=== PATIENT | female | born 1955 | race Caucasian/White ===

== ENCOUNTER → 2019-05-14 | Outpatient (CLI) | payer BC | END | disposition home or self-care (01) | LOC: LAB 12:35 → LAB SHORT 12:35 | DX: E03.9 Hypothyroidism, unspecified (principal) | CPT/HCPCS: 84443 ==

== ENCOUNTER 2023-05-17 13:37 | Inpatient (IN) | payer MEDICARE ==
[~2023-05-17] VITALS: Ht 172.7 cm; Wt 74.7 kg
[2023-05-17 14:18] LABS: BASOPHILS ABSOLUTE AUTO 0.03 K/mm3 (0.00-0.23); BASOPHILS PERCENT AUTO 1 % (0-2); EOSINOPHILS ABSOLUTE AUTO 0.05 K/mm3 (0.00-0.68); EOSINOPHILS PERCENT AUTO 1 % (0-6); Hematocrit 34.4 % (33.0-51.0); IMMATURE GRAN ABSOLUTE AUTO 0.06 K/mm3 (0.00-0.10); IMMATURE GRAN PERCENT AUTO 1 % (0-1); LYMPHOCYTES ABSOLUTE AUTO 1.27 K/mm3 (0.84-5.20); LYMPHOCYTES PERCENT AUTO 20 % (21-46); MONOCYTES ABSOLUTE AUTO 0.88 K/mm3 (0.16-1.47); MONOCYTES PERCENT AUTO 14 % (4-13); Mean Corpuscular HGB 39.5 pg (26.0-34.0); Mean Corpuscular HGB Conc 34.9 g/dL (31.5-36.5); Mean Corpuscular Volume 113 fL (80-100); Mean Platelet Volume 12.4 fL (9.1-12.4); NEUTROPHILS ABSOLUTE AUTO 4.18 K/mm3 (1.96-9.15); NEUTROPHILS PERCENT AUTO 65 % (41-73); NRBC ABSOLUTE 0.02 K/mm3 (0.00-0.02); NRBC Auto 0.3 /100 WBC (0.0-0.2); Platelet Count 51 K/mm3 (150-400); RDW Coefficient Variation 13.2 % (11.7-14.2); RDW Standard Deviation 55.4 fL (35.1-46.3); Red Blood Cell Count 3.04 M/mm3 (3.80-5.20); White Blood Cell Count 6.47 K/mm3 (4.00-11.30)
[2023-05-17 14:27] LABS: Albumin, Blood 2.5 g/dL (3.4-5.0); Albumin/Globulin Ratio 0.5 (0.8-1.8); Bilirubin, Total 7.8 mg/dL (0.1-1.0); Bun/Creatinine Ratio 30.5 (12.0-20.0); Calcium, Blood 9.2 mg/dL (8.5-10.1); Creatinine, Blood 0.69 mg/dL (0.40-1.00); Globulin, Blood 4.7 g/dL (2.2-4.0); Potassium, Blood 3.7 mmol/L (3.5-5.5); Total Protein, Blood 7.2 g/dL (6.4-8.2)
[2023-05-17 15:18] LABS: Ethanol (Alcohol), Blood, Med <3 mg/dL
[2023-05-17 15:27] LABS: Magnesium, Blood 1.1 mg/dL (1.6-2.4)
[2023-05-17 16:08] LABS: Source, Urine Clean Catch
[2023-05-17 16:16] LABS: Appearance, Urine Hazy (Clear); Blood, Urine 2+ (Neg); Color, Urine Red (P-Yellow); Glucose Qualitative, Urine Neg (Neg); Ketones, Urine 1+ (Neg); Leukocyte Esterase, Urine 1+ (Neg); Nitrite, Urine Pos (Neg); Protein, Urine 2+ (Neg); Specific Gravity, Urine 1.015 (1.003-1.022); Urobilinogen, Urine 3+ (Normal)
[2023-05-17 16:31] LABS: U Amphetamine Screen Not Detected; U Barbituate Screen Not Detected; U Benzodiazapine Screen Not Detected; U Buprenorphine Screen Not Detected; U Cannabinoids Screen DETECTED; U Cocaine Screen Not Detected; U Methadone Screen Not Detected; U Methamphetamine Screen Not Detected; U Opiates Screen Not Detected; U Oxycodone Screen Not Detected; U Phencyclidine Screen Not Detected; U Propoxyphene Screen Not Detected
[2023-05-17 16:33] LABS: Bilirubin, Urine 2+ (Neg)
[2023-05-17 16:34] LABS: Bacteria Many /hpf; Granular Casts 0-2 /lpf (0); Squamous Epithelial Cells Mod /hpf (Few)
[2023-05-17] MEDS ORDERED: MAGNESIUM OXID500 MG PO (16:45)
[2023-05-17] MEDS ORDERED: EUTHYROX125 MC1 PO (16:45)
[2023-05-17 19:40] LABS: International Normalized Ratio 1.83; Prothrombin Time Results 18.6 Sec (9.7-11.5)
[2023-05-17 20:17] VITALS: BP 119/71
[2023-05-17 23:33] VITALS: BP 114/60
[2023-05-18 03:14] VITALS: BP 105/59
--- NOTE | 2023-05-18 05:17 | NUR ---
SHIFT SUMMARY: Pt confused yet cooperative. Able to answer simple questions but she is a poor historian, thus many admission questions left blank for now. went home for the night. She states that she is seeing bugs crawling around on the rodriguez. Treated with ativan x1 and librium x1 per CIWA protocol with minor improvement in symptoms, but pt still confused and hallucinating. Bed alarm on, pt in room next to nurses station for closer monitoring. She ate a half a sandwich and is drinking fluids.
[2023-05-18 07:13] LABS: Albumin/Globulin Ratio 0.5 (0.8-1.8); Bilirubin, Total 5.5 mg/dL (0.1-1.0); Bun/Creatinine Ratio 30.7 (12.0-20.0); Calcium, Blood 8.2 mg/dL (8.5-10.1); Creatinine, Blood 0.72 mg/dL (0.40-1.00); Globulin, Blood 3.9 g/dL (2.2-4.0); Magnesium, Blood 1.5 mg/dL (1.6-2.4); Potassium, Blood 3.4 mmol/L (3.5-5.5); Total Protein, Blood 5.9 g/dL (6.4-8.2)
[2023-05-18 07:53] VITALS: BP 111/60
[2023-05-18 07:58] LABS: International Normalized Ratio 2.07; Prothrombin Time Results 20.9 Sec (9.7-11.5)
[2023-05-18] MEDS ORDERED: HYDCHL25 PO (09:40)
[2023-05-18 11:30] VITALS: BP 104/51
[2023-05-18 15:47] VITALS: BP 122/74
--- NOTE | 2023-05-18 18:13 | NUR ---
shift summary PT ALERT, ORIENTED TO SOME QUESTIONS, DISORIENTED OF DATE, PLACE, PERSON. REORIENTS BRIEFLY. SP02>90% ON RA. TELEMETRY SHOWS NSR, HR MSTLY 80'S-90'S. C/O OF MILD HEADACHE/NECK PAIN. INCONTINENT OF URINE, BED CHANGE THIS SHIFT. BED BATH THIS SHIFT. FLUIDS INFUSING PER EMAR. CIWAS RANGING FROM 8-14, MEDICATED PER EMAR. NEW IV PLACED IN R FOREARM. , SON AND GRANDKIDS IN ROOM THIS AFTERNOON TO VISIT. MD JOVEL IN ROOM TO UPDATE FAMILY. MD JOVEL W/ ORDERS FOR [facility], SEE RESULTS. BED IN LOW POSITION. CALL LIGHT IN REACH. BED ALARM ON.
--- NOTE | 2023-05-18 20:21 | NUR ---
ASSUMPTION OF CARE: PATIENT IS SLEEPING WELL, HAS NOT SLEPT LAST NIGHT OR MOST OF THE DAY, IS STILL HALLUCINATING AND TALKING TO SELF, RECENTLY RECIEVED ATIVAN DUE TO INCREASE IN CIWA. PATIENT IS CURRENLTY CIWA CONTROLLED. ROCEPHIN RAN IN STILL INFUSING D5 1/2NS. BED ALARM ON ABD DISTENDED. LIVER PALPABLE ON ABD EXAM, NO SNORING, DID GET PLACED ON 2L VIA NC DUE TO AWKWARD POSITION, REPOSITIONING AND INSPECTING SKIN SOON PCT IS FREE. PATIENT IN NO SIGN OF ACUTE CARDIAC OR RESPIRATORY DISTRESS, WILL CONTINUE TO MONITOR UNTIL SHIFT CHANGE.
[2023-05-18 23:28] VITALS: BP 98/62
[2023-05-19] VITALS (8 sets, daily range): BP systolic 87–118; BP diastolic 44–69
[2023-05-19 05:11] LABS: Albumin, Blood 1.9 g/dL (3.4-5.0); Albumin/Globulin Ratio 0.5 (0.8-1.8); Bilirubin, Total 5.5 mg/dL (0.1-1.0); Bun/Creatinine Ratio 31.1 (12.0-20.0); Calcium, Blood 7.6 mg/dL (8.5-10.1); Creatinine, Blood 0.55 mg/dL (0.40-1.00); Globulin, Blood 3.8 g/dL (2.2-4.0); Magnesium, Blood 1.5 mg/dL (1.6-2.4); Potassium, Blood 3.6 mmol/L (3.5-5.5); Total Protein, Blood 5.7 g/dL (6.4-8.2)
--- NOTE | 2023-05-19 06:22 | NUR ---
EOS: NO CHANGES FROM ASSUMPTION OF CARE. SLEPT WELL THROUGH THE SHIFT. DID AMBULATE TO BSC WITH MAX 2 PERSON, STILL INFUSING D5NS. PATIENT STILL SELF TALK, SOME MINOR HALLUCINATIONS AND AGITATION, BUT FALLS RIGHT BACK TO SLEEP. PATIENT CIWA NEVER TREATED WITH PRN'S DUE TO SCORE NOT BEING HIGH ENOUGH, WILL CONTINUE TO MONITOR UNTIL SHIFT CHANGE. NO ACTIVE SIGNS OF CHEST PAIN PRESSURE OR SOB. LABS DRAWN THIS MORNING.
--- NOTE | 2023-05-19 07:50 | NUR ---
PT WAKENS TO STIMULUS, ANSWERS SHE IS IN [place], AT THE HOSPITAL, RETURNS TO SLEEP WHILE ADDITIONAL QUESTIONS ARE BEING ASKED. RESTLESS. IV INFUSING RFA. NC @ 2L, BP AND HR STABLE.
--- NOTE | 2023-05-19 10:23 | NUR ---
TO CT SCAN, PT TOLERATED WELL. SLEPT THROUGH MOST OF IT. SHE FORGOT WHERE SHE WAS AND PUT HER ARMS DOWN MID SCAN, REMINDED. ENGAGES IN CONVERSATION. RETURNS TO SLEEP.
--- NOTE | 2023-05-19 12:06 | NUR ---
TRIED TO WAKE PATIENT FOR LUNCH, PT CONTINUES SLEEPING SOUNDLY ON RIGHT SIDE. VITALS STABLE.
--- NOTE | 2023-05-19 15:29 | NUR ---
PT AWOKE AROUND 1430, WANTING TO USE BR. PT ASSISTED WITH 2 PERSON MAX ASSIST. URINE DARK SHARON/ORANGE AND FOUL SMELLING. PT STATES SHE KNOWS SHE IS IN [place]- [place] AT THE HOSPITAL. TELLING STORIES OF THEIR ESCAPE FROM THE [employer] IN [facility] A FEW YEARS AGO. SHE WAS ABLE TO BRUSH HER TEETH AND RINSE HER MOUTH, WAS ABLE TO TAKE IN SOME WATER. SHE WANTED TO EAT, SO HER LUNCH TRAY WAS BROUGHT IN, SHE IS WORKING ON IT. SHE DECLINED HELP SAYING THAT SHE NEEDS TO IMPROVE HER MUSCLES. C/O RIGHT FOREARM IV SITE BOTHERING HER, ADDITIONAL SITE PLACED IN LEFT FOREARM.
--- NOTE | 2023-05-19 18:00 | NUR ---
RICKEY WAS AWAKE THIS AFTERNOON AND COMPLETELY APPROPRIATE. SHE RECALLS WHAT SHE WAS TOLD ABOUT HER SCANS YESTERDAY AND WHY SHE IS IN THE HOSPITAL. SHE IS STILL VERY SHAKY AND UNSTEADY WHEN REACHING FOR THINGS. HER FINE MOTOR SKILLS ARE LACKING WITH TRYING TO GET HER PEACHES IN HER MOUTH, LANDING MANY ON HER CHEST. HER IV FLUIDS CONTINUE AT 75ML/HR. ANTIBIOTICS AND REPLACEMENTS GIVEN. VISITED TWICE TODAY. SON AND HIS CHILDREN HERE THIS MORNING. CT SCAN DONE THIS MORNING. PT HOPING TO BE ABLE TO GO HOME SOON.
--- NOTE | 2023-05-19 23:08 | NUR ---
ASSUMPTION OF CARE: PATIENT HAS WOKE UP ALERT AND ORIENTED 3-4, ANSWERING QUESTIONS APPROPRIATELY, MAKING NEEDS KNOWN, DENIES PAIN, NO ACUTE DISTRESS, WAS ABLE TO EAT A SNACK, FLUIDS STILL INFUSING. PATIENT IS STILL TIRED, AND IS NOW LAYING BACK DOWN. CALL LIGHT WITHIN REACH. VSS. WILL CONTINUE TO MONITOR UNTIL SHIFT CHANGE.
[2023-05-20 00:41] VITALS: BP 94/48
[2023-05-20 03:18] VITALS: BP 101/59
[2023-05-20 04:24] LABS: BASOPHILS ABSOLUTE AUTO 0.03 K/mm3 (0.00-0.23); BASOPHILS PERCENT AUTO 1 % (0-2); EOSINOPHILS ABSOLUTE AUTO 0.13 K/mm3 (0.00-0.68); EOSINOPHILS PERCENT AUTO 3 % (0-6); Hematocrit 29.5 % (33.0-51.0); IMMATURE GRAN ABSOLUTE AUTO 0.04 K/mm3 (0.00-0.10); IMMATURE GRAN PERCENT AUTO 1 % (0-1); LYMPHOCYTES ABSOLUTE AUTO 1.33 K/mm3 (0.84-5.20); LYMPHOCYTES PERCENT AUTO 26 % (21-46); MONOCYTES ABSOLUTE AUTO 0.79 K/mm3 (0.16-1.47); MONOCYTES PERCENT AUTO 15 % (4-13); Mean Corpuscular HGB Conc 33.9 g/dL (31.5-36.5); Mean Platelet Volume 11.8 fL (9.1-12.4); NEUTROPHILS ABSOLUTE AUTO 2.87 K/mm3 (1.96-9.15); NEUTROPHILS PERCENT AUTO 55 % (41-73); Platelet Count 52 K/mm3 (150-400); RDW Coefficient Variation 14.6 % (11.7-14.2); RDW Standard Deviation 60.8 fL (35.1-46.3); White Blood Cell Count 5.19 K/mm3 (4.00-11.30)
[2023-05-20 04:29] LABS: Mean Corpuscular Volume 118 fL (80-100)
[2023-05-20 04:43] LABS: Bun/Creatinine Ratio 22.7 (12.0-20.0); Calcium, Blood 7.2 mg/dL (8.5-10.1); Creatinine, Blood 0.62 mg/dL (0.40-1.00); Potassium, Blood 3.5 mmol/L (3.5-5.5)
--- NOTE | 2023-05-20 05:03 | NUR ---
EOS: NO CHANGE FROM ASSUMPTION OF CARE. DENIES CHEST PAIN PRESSURE OR SOB. STILL ON 2L VIA NC. SLEEPING WELL. STILL INFUSING FLUIDS, NO ACUTE DISTRESS NOTED.
[2023-05-20 09:09] VITALS: BP 113/57
[2023-05-20 11:27] VITALS: BP 119/58
[2023-05-20 16:22] VITALS: BP 95/57
--- NOTE | 2023-05-20 18:25 | NUR ---
SHIFT SUMMARY ALERT AND ORIENTED WHEN AWAKE. NAPS FREQUENTLY. PLEASANT AND COOPERATIVE. 2L O2 VIA NC PRN WHEN SLEEPING. EXP WHEEZE AND OCC NON-PROD COUGH. TELE SR AT 85. CIWAS NEGATIVE. TOLERATED DIET AND FLUIDS. VOIDING WELL AND MULTIPLE BM'S THIS SHIFT. WORKED WELL WITH PHYSICAL THERAPY, RECOMMENDING HOME HEALTH PT. 1 PERSON ASSIST WITH FWW AND COACHING TO NOT LEAN BACKWARDS. VSS. SPOUSE VISITED A COUPLE TIMES. MEDICAL STATUS NO TELE. PLAN FOR POSSIBLE DISCHARGE HOME WITH HOME HEALTH IF BALANCE CONTINUES TO IMPROVE.
[2023-05-20 19:34] VITALS: BP 109/62
--- NOTE | 2023-05-20 23:29 | NUR ---
ASSUMPTION OF CARE: IMPROVED DAY SHIFT. PATIENT VERY TIRED, SLEEPING LIKE PREVIOUS SHIFT EASILY AROUSABLE NO ACTIVE SIGNS OF WITHDRAWAL, WAS ABLE TO ANSWER ORIENTING QUESTIONS WELL, THEN DRIFT BACK TO SLEEP[. SELF REPOSITIONS, FLUIDS AMONG OTHER INFUSIONS DC'D. NO ACUTE SIGN OF DISTRESS. LOOKS IMPROVED FROM EOS.
[2023-05-21 03:30] VITALS: BP 103/62
[2023-05-21 03:49] LABS: BASOPHILS ABSOLUTE AUTO 0.02 K/mm3 (0.00-0.23); BASOPHILS PERCENT AUTO 0 % (0-2); EOSINOPHILS ABSOLUTE AUTO 0.14 K/mm3 (0.00-0.68); EOSINOPHILS PERCENT AUTO 3 % (0-6); Hemoglobin 10.2 g/dL (11.5-16.0); IMMATURE GRAN ABSOLUTE AUTO 0.05 K/mm3 (0.00-0.10); IMMATURE GRAN PERCENT AUTO 1 % (0-1); LYMPHOCYTES ABSOLUTE AUTO 1.41 K/mm3 (0.84-5.20); LYMPHOCYTES PERCENT AUTO 29 % (21-46); MONOCYTES ABSOLUTE AUTO 0.83 K/mm3 (0.16-1.47); MONOCYTES PERCENT AUTO 17 % (4-13); Mean Corpuscular Volume 118 fL (80-100); Mean Platelet Volume 11.4 fL (9.1-12.4); NEUTROPHILS ABSOLUTE AUTO 2.42 K/mm3 (1.96-9.15); NEUTROPHILS PERCENT AUTO 50 % (41-73); Platelet Count 55 K/mm3 (150-400); RDW Coefficient Variation 14.3 % (11.7-14.2); RDW Standard Deviation 61.8 fL (35.1-46.3); Red Blood Cell Count 2.55 M/mm3 (3.80-5.20); White Blood Cell Count 4.87 K/mm3 (4.00-11.30)
[2023-05-21 04:08] LABS: Bun/Creatinine Ratio 25.4 (12.0-20.0); Calcium, Blood 7.7 mg/dL (8.5-10.1); Creatinine, Blood 0.59 mg/dL (0.40-1.00); Potassium, Blood 4.3 mmol/L (3.5-5.5)
[2023-05-21 08:57] VITALS: BP 112/56
[2023-05-21] MEDS ORDERED: ONE DAILY ESS400 MCG PO (09:52)
--- NOTE | 2023-05-21 10:14 | NUR ---
DISCHARGE PT A/O X4. STILL WEAK T/O. UP TO BATHROOM WITH FWW AND STANDBY ASSIST. PT HAS BEEN REFERED TO OUTPT PHYSICAL THERAPY, HARD RX GIVEN TO PT AND ALSO FAXED TO [facility]. PT HAS AN OPEN AREA ON L BUTTOCKS THAT IS COVERED WITH MEPILEX. PT AND STATE IT HAS BEEN THERE FOR ABOUT 5 MONTHS. FAXED INFO TO [facility] WHERE PT WILL BE FOLLOWING UP FOR OVARIAN CA, AND CT IMAGES PUSHED WELL. DISCHARGE INSTRUCTIONS GONE OVER WITH PT AND . PT TAKEN VIA W/C TO CAR BY PCT, NO SIGN OF DISTRESS SHE LEAVES.
== END 2023-05-21 10:12 | disposition home or self-care (01) | DRG 896 ==
LOC: ER 13:37 → PCU 18:56
PROVIDERS: Emergency Medicine; Internal Medicine; ADMIT Nurse Practitioner Acute Care
PROC: HZ2ZZZZ Detoxification Services for Substance Abuse Treatment (ICD-10-PCS; principal; 2023-05-17)
DX: F10.239 Alcohol dependence with withdrawal, unspecified (principal); G93.41 Metabolic encephalopathy; C56.1 Malignant neoplasm of right ovary; C78.6 Secondary malignant neoplasm of retroperitoneum and peritoneum; E83.42 Hypomagnesemia; E03.9 Hypothyroidism, unspecified; E05.00 Thyrotoxicosis with diffuse goiter without thyrotoxic crisis or storm; D63.0 Anemia in neoplastic disease; N83.8 Other noninflammatory disorders of ovary, fallopian tube and broad ligament; K70.31 Alcoholic cirrhosis of liver with ascites; D69.59 Other secondary thrombocytopenia; F17.210 Nicotine dependence, cigarettes, uncomplicated; Z79.890 Hormone replacement therapy
CPT/HCPCS: 36415; 70450; 71046; 71260; 74177; 80048; 80053; 81001; 82140; 83735; 84443; 85025; 85610; 87086; 94760; 96365-59; 96366; 96368; 96375; 97112; 97116; 97162; 97166; 97535; 99285-25; A9270; G0480; J0696; J2060; J3411; J3475; J3480; J7042; J7050; Q9967

== ENCOUNTER → 2023-07-17 | Outpatient (CLI) | payer MEDICARE ==
[~2023-07-17] MED LIST: EUTHYROX125 MC1 PO; HYDCHL25 PO; MAGNESIUM OXID500 MG PO; ONE DAILY ESS400 MCG PO
[2023-07-17 14:18] LABS: Hematocrit 32.5 % (33.0-51.0); Hemoglobin 10.9 g/dL (11.5-16.0); Mean Corpuscular HGB 37.7 pg (26.0-34.0); Mean Corpuscular HGB Conc 33.5 g/dL (31.5-36.5); Mean Corpuscular Volume 113 fL (80-100); Platelet Count 55 K/mm3 (150-400); RDW Coefficient Variation 16.5 % (11.7-14.2); RDW Standard Deviation 67.7 fL (35.1-46.3); Red Blood Cell Count 2.89 M/mm3 (3.80-5.20); White Blood Cell Count 4.98 K/mm3 (4.00-11.30)
== END ==
LOC: LAB SHORT 13:30 → LAB 13:30
PROVIDERS: Internal Medicine Hematology & Oncology
DX: C56.9 Malignant neoplasm of unspecified ovary (principal)
CPT/HCPCS: 85027

== ENCOUNTER → 2023-08-07 | Outpatient (CLI) | payer MEDICARE ==
[~2023-08-07] MED LIST changes: +KLOR-CON 1010 ME9 PO; +ONDA4ODT MM
[2023-08-07 14:30] LABS: Hematocrit 30.4 % (33.0-51.0); Hemoglobin 9.9 g/dL (11.5-16.0); Mean Corpuscular HGB 36.4 pg (26.0-34.0); Mean Corpuscular HGB Conc 32.6 g/dL (31.5-36.5); Mean Corpuscular Volume 112 fL (80-100); RDW Coefficient Variation 19.3 % (11.7-14.2); Red Blood Cell Count 2.72 M/mm3 (3.80-5.20); White Blood Cell Count 6.41 K/mm3 (4.00-11.30)
[2023-08-07 14:38] LABS: Mean Platelet Volume 13.3 fL (9.1-12.4)
[2023-08-07 14:40] LABS: Platelet Count 36 K/mm3 (150-400)
== END ==
LOC: LAB 14:02 → LAB SHORT 14:02
PROVIDERS: Internal Medicine Hematology & Oncology
DX: C56.9 Malignant neoplasm of unspecified ovary (principal)
CPT/HCPCS: 85027

== ENCOUNTER 2023-08-09 01:39 | Day surgery (SDC) | payer MEDICARE ==
[~2023-08-09 01:39] MED LIST changes: -KLOR-CON 1010 ME9 PO; -ONDA4ODT MM
[2023-08-09 08:06] VITALS: BP 133/67
[2023-08-09 08:36] VITALS: BP 128/64
[2023-08-09] MEDS ORDERED: HYDCHL25 PO (08:40)
[2023-08-09] MEDS ORDERED: KLOR-CON 1010 ME9 PO (08:40)
[2023-08-09] MEDS ORDERED: ONDA4ODT MM (08:42)
[2023-08-09 09:15] VITALS: BP 132/65
[2023-08-09 10:16] LABS: BASOPHILS ABSOLUTE AUTO 0.01 K/mm3 (0.00-0.23); BASOPHILS PERCENT AUTO 0 % (0-2); EOSINOPHILS PERCENT AUTO 0 % (0-6); Hematocrit 28.8 % (33.0-51.0); Hemoglobin 9.8 g/dL (11.5-16.0); IMMATURE GRAN ABSOLUTE AUTO 0.05 K/mm3 (0.00-0.10); IMMATURE GRAN PERCENT AUTO 1 % (0-1); LYMPHOCYTES ABSOLUTE AUTO 1.09 K/mm3 (0.84-5.20); LYMPHOCYTES PERCENT AUTO 18 % (21-46); MONOCYTES ABSOLUTE AUTO 0.35 K/mm3 (0.16-1.47); MONOCYTES PERCENT AUTO 6 % (4-13); Mean Corpuscular HGB 37.7 pg (26.0-34.0); Mean Corpuscular Volume 111 fL (80-100); Mean Platelet Volume 12.5 fL (9.1-12.4); NEUTROPHILS ABSOLUTE AUTO 4.44 K/mm3 (1.96-9.15); NEUTROPHILS PERCENT AUTO 75 % (41-73); Platelet Count 88 K/mm3 (150-400); RDW Coefficient Variation 19.6 % (11.7-14.2); RDW Standard Deviation 77.4 fL (35.1-46.3); White Blood Cell Count 5.94 K/mm3 (4.00-11.30)
== END 2023-08-09 09:53 | disposition home or self-care (01) ==
LOC: ATC 01:39 → EDSTATUS 08-05 10:35 → ATC 08-05 10:35 → LAB FUT 08-05 10:35
PROVIDERS: Internal Medicine Hematology & Oncology
DX: C56.9 Malignant neoplasm of unspecified ovary (principal); F17.200 Nicotine dependence, unspecified, uncomplicated
CPT/HCPCS: 36415; 36430; 85025; 86900; 86901; J7050; P9035

== ENCOUNTER 2023-09-09 16:14 | Inpatient (IN) | payer MEDICARE ==
[~2023-09-09] VITALS: Ht 170.2 cm; Wt 79.5 kg
[~2023-09-09 16:14] MED LIST changes: +KLOR-CON 1010 ME9 PO; +ONDA4ODT MM
[2023-09-09 17:57] LABS: Hematocrit 23.8 % (33.0-51.0); Mean Corpuscular HGB 36.4 pg (26.0-34.0); Mean Corpuscular HGB Conc 33.6 g/dL (31.5-36.5); Mean Corpuscular Volume 108 fL (80-100); NRBC ABSOLUTE 0.06 K/mm3 (0.00-0.02); RDW Coefficient Variation 21.3 % (11.7-14.2); RDW Standard Deviation 83.7 fL (35.1-46.3)
[2023-09-09 18:04] LABS: BASOPHILS ABSOLUTE AUTO 0.01 K/mm3 (0.00-0.23); BASOPHILS PERCENT AUTO 1 % (0-2); EOSINOPHILS PERCENT AUTO 0 % (0-6); IMMATURE GRAN ABSOLUTE AUTO 0.01 K/mm3 (0.00-0.10); IMMATURE GRAN PERCENT AUTO 1 % (0-1); LYMPHOCYTES ABSOLUTE AUTO 0.44 K/mm3 (0.84-5.20); LYMPHOCYTES PERCENT AUTO 59 % (21-46); MONOCYTES ABSOLUTE AUTO 0.07 K/mm3 (0.16-1.47); MONOCYTES PERCENT AUTO 9 % (4-13); NEUTROPHILS ABSOLUTE AUTO 0.22 K/mm3 (1.96-9.15); NEUTROPHILS PERCENT AUTO 29 % (41-73)
[2023-09-09 18:06] LABS: Platelet Count 13 K/mm3 (150-400); White Blood Cell Count 0.75 K/mm3 (4.00-11.30)
[2023-09-09 18:12] LABS: Albumin, Blood 1.5 g/dL (3.4-5.0); Albumin/Globulin Ratio 0.5 (0.8-1.8); Bilirubin, Total 11.7 mg/dL (0.1-1.0); Calcium, Blood 8.8 mg/dL (8.5-10.1); Creatinine, Blood 0.63 mg/dL (0.40-1.00); Globulin, Blood 2.9 g/dL (2.2-4.0); Potassium, Blood 4.9 mmol/L (3.5-5.5); Total Protein, Blood 4.4 g/dL (6.4-8.2)
[2023-09-09 19:03] LABS: Magnesium, Blood 1.3 mg/dL (1.6-2.4)
[2023-09-09 19:06] LABS: Thyroid Stimulating Hormone 4.3 uIU/mL (0.360-4.800)
[2023-09-09 19:32] LABS: Influenza A, PCR NEGATIVE (NEGATIVE); Influenza B, PCR NEGATIVE (NEGATIVE); Resp Syncytial Virus, PCR NEGATIVE (NEGATIVE); SARS-Cov-2 (COVID-19) PCR, MMC NEGATIVE (NEGATIVE)
[2023-09-09 20:21] LABS: Source, Urine Clean Catch
[2023-09-09 20:32] LABS: Blood, Urine 1+ (Neg); Glucose Qualitative, Urine Neg (Neg); Ketones, Urine Neg (Neg); Leukocyte Esterase, Urine 1+ (Neg); Nitrite, Urine Neg (Neg); Protein, Urine 1+ (Neg); Urobilinogen, Urine 2+ (Normal)
[2023-09-09 20:51] LABS: Appearance, Urine Hazy (Clear); Bilirubin, Urine 2+ (Neg); Color, Urine Yellow (P-Yellow)
[2023-09-09 20:52] LABS: Bacteria Few /hpf; Red Blood Cells, Urine 0-2 /hpf (0-2); Squamous Epithelial Cells Few /hpf (Few); White Blood Cells, Urine 0-2 /hpf (0-5)
[2023-09-09 22:13] LABS: D-Dimer, Quantitative 5.41 mg/L FEU (0.00-0.52); International Normalized Ratio 3.45; Prothrombin Time Results 33.8 Sec (9.7-11.5)
[2023-09-10] VITALS (10 sets, daily range): BP systolic 86–106; BP diastolic 48–60
--- NOTE | 2023-09-10 02:44 | NUR ---
SVT X [address] MOREL LABS PLUS MG, WILL CALL WHEN RESULTED PATIENT ASYMPTOMATIC, BLOOD PRESSURE STILL MAP >60
[2023-09-10 03:13] LABS: Hematocrit 21.8 % (33.0-51.0); Hemoglobin 7.3 g/dL (11.5-16.0); Mean Corpuscular HGB 36.1 pg (26.0-34.0); Mean Corpuscular HGB Conc 33.5 g/dL (31.5-36.5); Mean Corpuscular Volume 108 fL (80-100); NRBC ABSOLUTE 0.06 K/mm3 (0.00-0.02); NRBC Auto 6.1 /100 WBC (0.0-0.2); RDW Coefficient Variation 21.1 % (11.7-14.2); RDW Standard Deviation 83.1 fL (35.1-46.3); Red Blood Cell Count 2.02 M/mm3 (3.80-5.20)
[2023-09-10 03:25] LABS: Platelet Count 10 K/mm3 (150-400); White Blood Cell Count 0.99 K/mm3 (4.00-11.30)
[2023-09-10 03:27] LABS: International Normalized Ratio 3.3; Prothrombin Time Results 32.4 Sec (9.7-11.5)
[2023-09-10 03:29] LABS: Albumin, Blood 1.4 g/dL (3.4-5.0); Albumin/Globulin Ratio 0.6 (0.8-1.8); Bilirubin, Total 11.4 mg/dL (0.1-1.0); Bun/Creatinine Ratio 45.8 (12.0-20.0); Creatinine, Blood 0.72 mg/dL (0.40-1.00); Globulin, Blood 2.5 g/dL (2.2-4.0); Magnesium, Blood 1.6 mg/dL (1.6-2.4); Total Protein, Blood 3.9 g/dL (6.4-8.2)
[2023-09-10 03:34] LABS: BASOPHILS PERCENT MAN 0 % (0-2); EOSINOPHILS PERCENT MAN 0 % (0-6); LYMPHOCYTES ABSOLUTE MAN 0.39 K/mm3 (0.84-5.20); LYMPHOCYTES PERCENT MAN 40 % (21-46); MONOCYTES ABSOLUTE MAN 0.19 K/mm3 (0.16-1.47); MONOCYTES PERCENT MAN 20 % (4-13); NEUTROPHILS ABSOLUTE MAN 0.39 K/mm3 (1.96-9.15); SEG NEUTROPHILS PERCENT MAN 40 % (41-73); TOTAL CELLS COUNTED 25
--- NOTE | 2023-09-10 05:55 | NUR ---
ONLY CHANGES FROM SHIFT ASSESSMENT. ALERTED OF 1 MINUTE OF SVT, MG AND MORNING LABS DONE, NO MAJOR CONCERNS, PATIENT ASSYMPTOMATIC, VITAL SIGNS STABLE AFEBRILE. MAP >60 AND SPO2 >92% ON 2L. PATIENT IS STILL MILDLY CONFUSED. DNR BRACELET IN PLACE, WILL CONTINUE TO MONITOR. PALLIATIVE CARE CALLED. NO CONCERNS FROM THIS RN. DENIES CHEST PAIN PRESSURE OR SOB.
--- NOTE | 2023-09-10 09:19 | NUR ---
Jordi at the bedside. Pt is alert, oriented to person, and place, and some recent events but is muddled in her thinking. Often forgot earlier today that her was not here. Had some confusion about how to drink water while taking medications and put too much into her mouth at once. She seems to be a little bit foggy regarding ongoing events. She was not able to fill out her menu by herself. Speech is a bit slow.
--- NOTE | 2023-09-10 10:53 | NUR ---
Spoke with Primary RN Marisol and discussed case. Pt A&O but experiencing confusion. Pt resting in bed upon arrival. Pt A&OX2-3. Pt knows she is in the hospital but does not know the name. Pt unable to verbalize correct reason for hospital stay but knows it is related to her ovarian cancer. Pt unable to verbalize correct year. Reviewed plan of care and recommendations based off admitting provider's H&P note. Discussed considering hospice services. Pt engages in non sensical conversation. Continued supportive visit. Pt agreeable for this RN to call her and spouse. Called and spoke with Pt's spouse Harry. Harry reports currently driving and pulls over on the side of the road. Brief review of recommendations. Discussed considering hospice. Harry reports thinking he may be in agreement with hospice but states he will need help as he is recovering from a stroke. Harry agreeable for this RN to call him back a little later after he has returned home. Attempted to call Pt's son a couple of times. Phone number listed for son keeps going to busy signal. Plan: Continued conversation with spouse regarding hospice services. Palliative Care will remain available
--- NOTE | 2023-09-10 11:39 | NUR ---
Pt incontinent of black liquid stool. Specimen sent for guaic testing to lab.
--- NOTE | 2023-09-10 11:46 | NUR ---
Dr. Ferguson here to see the patient.
--- NOTE | 2023-09-10 12:09 | NUR ---
Dr. Ferguson rounded on the patient. She is going to attempt to reach the pt's Jordi by telephone.
--- NOTE | 2023-09-10 13:02 | NUR ---
Case Conference Note Spoke with Pt's spouse Harry (goes by Jordi) over the phone. He reports speaking with Dr Ferguson and understands recommendations. Jordi reports being in agreement. Discussed hospice agencies to choose from. Jordi reports preference of [facility]. He is reporting that Pt was assisting with him as he is recovering from his stroke. He reports needing resources to assist with care. Jordi reports plan to speak with Pt's son and will request son to come for support. Son lives in [facility] [place]. Continued supportive conversation. Spoke with Dr Ferguson and discussed case. Plan to Optimize Pt with possible D/C on with hospice services. Spoke with Felicitas in [employer] office. She well send referral to [facility]. Palliative Care will remain available for supportive visit.
--- NOTE | 2023-09-10 14:05 | NUR ---
Called and spoke with son Gregorio. Provided update and reviewed plan of care. Offered therapeutic listening and answered questions. Gregorio appears to be in agreement with D/C plan with hospice services. No other concerns reported at this time. Palliative Care will remain available
--- NOTE | 2023-09-10 14:36 | NUR ---
The pt is sleeping. She appears to be very comfortable. Respirations are even, unlabored and skin is pink.
--- NOTE | 2023-09-10 15:58 | NUR ---
Pt awakened, dry mouth with a thin dark brown ring around her lips. She cannot tell me if she has been coughing up phlegm and what color it might be. Oral care supplies provided, and she was able to do her own care with soft suction toothbrush and suction swabs, using hospital mouth wash. She says that she has many sores inside her mouth. Noted scant amount of bleeding on the sponge. Provided water for rinsing afterwards as she said it was stinging a little. Assisted to reposition to the left side. She otherwise has no c/o pain and was given apple juice at her request.
--- NOTE | 2023-09-10 23:58 | NUR ---
AOC: PATIENT WITH MINIMAL CHANGE FROM PREVIOUS SHIFT, WILL CONTINUE TO MONITOR , STILL A/O X 3-2. UNABLE TO USE CALL LIGHT, INTENTIONAL ROUNDING INCREASED FOR SAFETY. BED ALARM. RECIEVED X 1 ABX FROM THIS LOCAL COMPANY HAZMAT DRIVER, STILL VERY EDAMATIOUS, URINE LOOKS TO BE SHARON TO RED, BACK TO SHARON, SCD'S IN PLACE. TOLERATES THIN LIQUIDS. DECREASED APPETITE DUE TO ABILITY TO EAT. SPO2 >93% ON 2.5L. DENIES CHEST PAIN PRESSURE OR SOB. COOPERATIVE WITH CARE. VISUAL HALLUCINATIONS, AUDITORY WELL AT TIMES. PATIENT NOT IMPULSIVE AT THIS TIME. RECOMMENDATIONS: MAGIC MOUTH WASH.
--- NOTE | 2023-09-11 01:07 | NUR ---
ASSUMPTION OF CARE RECEIVED REPORT FROM [facility] AND ASSUMED CARE. PT IS RESTING IN BED, NO CONCERNS AT THIS TIME. WILL CONTINUE TO MONITOR AND WILL CONTINUE PLAN OF CARE.
[2023-09-11 01:09] VITALS: BP 108/67
--- NOTE | 2023-09-11 05:16 | NUR ---
EVENT NOTE PT SET OFF BED ALARM BY SITTING ON THE EDGE OF BED, YELLING "GIVE ME A TOWEL". REORIENTED TO PLACE AND SITUATION, SHE CONTINUES TO YELL "ROGE, GET ME MY PAJAMAS". PROVIDED REASSURANCE THAT ROGE WOULD BE COMING IN THIS MORNING AND THAT WE WOULD REQUEST HER PAJAMAS FROM HOME. PT IS AGITATED AND THREATENING TO "SOCK" THE STAFF WHILE MAKING A RAISED FIST. CALLED RESIDENT MD AND REQUESTED MEDICATION FOR AGITATION, WILL ADMINISTER AND MONITOR FOR EFFECTIVENESS.
--- NOTE | 2023-09-11 06:52 | NUR ---
PT DID NOT SLEEP AFTER MIDNIGHT THIS SHIFT. BECAME AGITATED THIS MORNING AND THREATENING TO STAFF (SEE EVENT NOTE). CURRENTLY RESTING ON HER SIDE WITH EYES CLOSED, STILL REFUSING TELE AND VITAL SIGNS. ORDER OBTAINED FOR PRN MEDICATION FOR AGITATION BUT SHE IS REFUSING ANY CLOSE CONTACT. ALSO REMOVED HER BRIEF AND PUREWICK. ALLOWING A REST PERIOD AND THEN WILL ATTEMPT PLACEMENT OF TELE AND VITAL SIGNS AGAIN. PLAN IS FOR DC TO HOSPICE ON 09/12 AFTER ARRANGEMENTS CAN BE MADE FOR ASSISTANCE AT HOME. WILL PROVIDE BEDSIDE REPORT TO ONCOMING RN.
[2023-09-11 07:43] VITALS: BP 95/77
--- NOTE | 2023-09-11 11:09 | NUR ---
Jordi was at the bedside for about an hour. The pt is now sleeping quietly.
[2023-09-11 12:41] VITALS: BP 138/103
--- NOTE | 2023-09-11 12:43 | NUR ---
Just before lunch the pt was yelling, "I just want to be down. Put this bed down". Assisted to lower the HOB to flat position, but then she raised it up again on her own and began yelling again. When lunch arrived she was assisted up to sitting position to talk with Dr. Ferguson, and then she ate lunch with PCT assistance and is quite cheerful at this time.
--- NOTE | 2023-09-11 21:20 | NUR ---
AOC: PATIENT MILDLY WORSE FORM PREVIOUS SHIFT, NO ACTIVE CONCERNS, PATIENT COOPERATIVE WITH CARE FROM THIS CHIEF PILOT AT THIS TIME. DENIES CHEST PAIN PRESSURE OR SOB, IS VERY SOLMN AND DOWN, NEEDS 02 FOR SPO2 >88%, STILL TAKES OFF. TELE OFF WITH OK FROM DAY HOSPITALIST. NO IV ACCESS, ABX NOT INFUSED PATIENT REFUSED ADDITIONAL IV. PATIENT SAD AND DEPRESSED, JUST WANTING TO SLEEP.
[2023-09-12] VITALS: BP 93/56
[2023-09-12 04:03] VITALS: BP 99/48
--- NOTE | 2023-09-12 05:54 | NUR ---
NO SIGNIFICANT CHANGES THROUGHOUT THE NIGHT. VERY MINIMALLY WORSE MENTATION, WILL CONTINUE TO MONITOR UNTIL SHIFT CHANGE.
--- NOTE | 2023-09-12 07:47 | NUR ---
Pt is lying in bed, eyes closed at time of bedside report. When I came in again at 0730, her oxygen nasal cannula was pushed above her eyes. She awakened easily to conversation. vital signs taken. She is conversant, but confused, calm, and cooperative. noted 80% on room air. O2 applied at 3 l/min and spo2 improved to 90%.
[2023-09-12] MEDS ORDERED: MORP20L PO (09:27)
[2023-09-12] MEDS ORDERED: LORA.5 PO (09:27)
--- NOTE | 2023-09-12 11:58 | NUR ---
Pt had urinary and stool incontinence about 1.5 hours ago. Pericare and linen change completed. Pt was repositioned to comfort and she is now apparently sleeping.
== END 2023-09-12 12:36 | disposition hospice, home (50) | DRG 808 ==
LOC: ER 16:14 → PCU 16:15
PROVIDERS: Emergency Medicine; Nurse Practitioner Acute Care; Student in an Organized Health Care Education/Training Program; ADMIT Internal Medicine
DX: D61.810 Antineoplastic chemotherapy induced pancytopenia (principal); I81 Portal vein thrombosis; K76.3 Infarction of liver; J96.01 Acute respiratory failure with hypoxia; C56.9 Malignant neoplasm of unspecified ovary; E87.20 Acidosis, unspecified; K76.6 Portal hypertension; C78.6 Secondary malignant neoplasm of retroperitoneum and peritoneum; N39.0 Urinary tract infection, site not specified; K70.31 Alcoholic cirrhosis of liver with ascites; E83.42 Hypomagnesemia; R91.1 Solitary pulmonary nodule; E86.0 Dehydration; E03.9 Hypothyroidism, unspecified; Z51.5 Encounter for palliative care; Z92.21 Personal history of antineoplastic chemotherapy; Z79.899 Other long term (current) drug therapy; Z79.890 Hormone replacement therapy; Z11.52 Encounter for screening for COVID-19
CPT/HCPCS: 0241U; 36415; 71046; 74177; 80053; 81001; 82140; 83605; 83735; 84145; 84443; 85025; 85379; 85384; 85610; 87086; 93005; 93010; 96361; 96365-59; 96366; 96367; 96375; 99285-25; A9270; J0696; J1940; J2405; J2543; J3370; J3475; J7030; Q5110; Q9967